=== PATIENT | female | born 1950 | race Caucasian/White ===

== ENCOUNTER → 2018-12-03 | Outpatient (CLI) | payer MEDICARE ==
[~2018-12-03] MED LIST: ALTACE 10MG TAB10 MG PO; ASPIRIN 32325 MG/TA1 PO; ASPIRIN E.C. 8181 MG PO; CELEXA10 MG PO; DUO-KAPS1 CAP PO; DYAZIDE 25 MG-31 CAP PO; FLONASE NASAL S16 GM NS; FOLIC ACID 40400 MCG PO; KLONOPIN 1MG1 MG PO; KLOR-CON 1010 MEQ PO; LASIX 40MG TABL40 MG PO; LEXAPRO 10MG10 MG PO; NORCO 325 MG-7.1 TAB PO; OMEGA 31000 MG PO; OXY IR5 MG PO; ROXICODONE 55 MG/TAB PO; TYLENOL EXTRA500 M1; ULTRAM 50MG TAB50 MG PO; ZYLOPRIM 100MG100 MG PO
== END ==
LOC: MC.RAD 13:37
DX: Z12.31 Encounter for screening mammogram for malignant neoplasm of breast (principal)

== ENCOUNTER → 2021-09-25 | Outpatient (CLI) | payer MEDICARE | LOC: MC.RAD 16:34 | DX: Z12.31 Encounter for screening mammogram for malignant neoplasm of breast (principal) ==

== ENCOUNTER → 2022-11-19 | Outpatient (CLI) | payer MEDICARE | LOC: MC.RAD 13:59 | DX: Z12.31 Encounter for screening mammogram for malignant neoplasm of breast (principal) ==

== ENCOUNTER → 2024-06-01 | Outpatient (CLI) | payer MEDICARE ==
[~2024-06-01] MED LIST changes: +ALBUTEROL SULFAT3 M3 IH; +APRESOLINE 25MG25 MG PO; +B-121000 MCG PO; +CARDIZEM 30MG T30 MG PO; +CARDIZEM CD 12120 MG PO; +CEPHALEXIN500 M1 PO; +COLACE 100100 MG/CAP PO; +CORDARONE200 MG/TAB PO; +COUMADIN 2MG2 MG/TAB PO; +COUMADIN 5MG5 MG/TAB PO; +DESYREL 100MG100 MG PO; +ELIQUIS 5MG PO; +FLONASEALLERGY NS; +FOLIC ACID 11 MG/TA1 PO; +LASIX 20MG TABL20 MG PO; -LASIX 40MG TABL40 MG PO; +PACERONE200 MG PO; +SINGULAIR 110 MG/TAB PO; +SODIUM BICARBO650 MG PO; +TYLENOL 8 HR PO; -TYLENOL EXTRA500 M1; +VENTOLIN0.09 MG IH; +ZYRTEC 10MG10 MG PO
== END ==
LOC: MHCPAIN 09:16
DX: M54.50 Low back pain, unspecified (principal); M48.02 Spinal stenosis, cervical region; M50.23 Other cervical disc displacement, cervicothoracic region
CPT/HCPCS: G0463

== ENCOUNTER → 2024-06-04 | Outpatient (CLI) | payer MEDICARE | LOC: COL.RAD 10:13 | DX: R91.1 Solitary pulmonary nodule (principal) ==

== ENCOUNTER → 2024-07-06 | Outpatient (CLI) | payer MEDICARE | LOC: MC.RAD 11:33 | DX: Z12.31 Encounter for screening mammogram for malignant neoplasm of breast (principal) ==

== ENCOUNTER → 2024-08-02 | Outpatient (CLI) | payer MEDICARE ==
[~2024-08-02] MED LIST changes: +Iohexol 300 - 10 ML VIAL ONE; +Lidocaine PF 2% (20 MG/ML) 2 ML VIAL ONE
== END ==
LOC: MHCPAIN 11:51
DX: M54.16 Radiculopathy, lumbar region (principal); M54.50 Low back pain, unspecified
CPT/HCPCS: J1100; Q9967